=== PATIENT | female | born 1950 | race Caucasian/White ===

== ENCOUNTER 2016-12-23 10:47 | Inpatient (IN) | payer OTHER ==
[~2016-12-23] VITALS: Ht 152.4 cm; Wt 44.8 kg
[~2016-12-23 10:47] MED LIST: ACTOPLUS MET1 TABLET PO; AMLODIPINE BESY10 MG PO; AMLODIPINE BESYL5 MG PO; APRESOLINE50 MG PO; ASPIR 8181 M1 PO; ASPIRIN81 M2 PO; ATORVASTATIN CA20 MG PO; ATORVASTATIN CA40 MG PO; BACTRIM,SEPT1 TABLET PO; CEFTRIAXON2 GM/50 M1 IV; CHILDREN'S ASPI81 M1 PO; DOCUSATE SODIU100 MG PO; DULCOLAX10 MG PR; GENTLE LAXATIVE10 MG PR; GLIPIZIDE5 MG PO; HYDRALAZINE HCL25 MG PO; HYDROCHLOROTH12.5 M3 PO; LANTUS 10100 UNITS/ SC; LEVO-T137 MCG PO; LEVO-T150 MCG PO; LISINOPRIL40 MG PO; MELOXICAM7.5 MG PO; METFORMIN HCL1000 MG PO; MICARDIS HCT1 TABLE2 PO; MILK OF MAGNESI10 ML PO; MIRALAX17 GM PO; NEURONTIN300 MG PO; NOVOLIN,HU100 UNITS/ SC; OMEPRAZOLE20 MG PO; OXAYDO5 MG PO; OXYCODONE HCL10 MG PO; PERCOCET 5/31 TABLET PO; PHENERGAN25 MG PR; RANITIDINE HCL150 MG PO; SENNA PLUS TAB1 EACH PO; TYLENOL REGULA325 MG PO; VANCOMYCIN1 GM/200 M IV; VENOFER100 MG/5 M IV; ZESTRIL30 MG PO; ZESTRIL40 MG PO
[2016-12-23 12:00] LABS: BASOPHIL COUNT 0.1 K/uL (0-0.1); EOSINOPHIL (%) 2.5 % (0-5); EOSINOPHIL COUNT 0.2 K/uL (0-0.3); HEMATOCRIT 31.5 % (36.0-46.0); IMMATURE GRANULOCYTE (%) 0.4 % (0.0-0.7); INSTRUMENT ABS NEUTROPHIL CT 6.4 K/uL; MCH 31.5 PG (29.0-34.0); MCHC 31.4 G/DL (30.0-36.0); MCV 100.3 FL (83-99); MONOCYTE (%) 5.1 % (3-12); MONOCYTE COUNT 0.5 K/uL (0-0.8); NEUTROPHIL (%) 69.7 % (45-76); NEUTROPHIL COUNT 6.4 K/uL (1.8-6.4); RBC DIS.WIDTH-CV 13.3 % (11.8-14.6); RBC DIS.WIDTH-SD 48.6 % (39-53); RED BLOOD COUNT 3.14 M/uL (3.80-5.20); WHITE BLOOD COUNT 9.2 K/uL (4.1-10.2)
[2016-12-23 12:11] LABS: CHLORIDE 110 mEq/L (99-109); POTASSIUM 4.2 mEq/L (3.7-5.4); SODIUM 142 mEq/L (136-147)
[2016-12-23 12:13] LABS: GLUCOSE 157 mg/dL (70-99)
[2016-12-23 12:15] LABS: ANION GAP 10 MEQ/L (2-14); TOTAL BILIRUBIN 0.2 mg/dL (0.0-1.0)
[2016-12-23 12:17] LABS: ALKALINE PHOSPHATASE 79 IU/L (3-129); GFR ESTIMATE (CALCULATED) > 59 mL/min/
[2016-12-23 12:18] LABS: UREA NITROGEN (BUN) 17 mg/dL (9-23)
[2016-12-23 12:21] LABS: TROP-I INTERPRETATION INDETERMINATE; TROPONIN-I 0.53 ng/mL (0.0-0.30)
[2016-12-23 12:59] LABS: MEAN PLAT.VOLUME 12.6 uM^3 (9.5-12.4); PLAT.SUFFICIENCY ADEQUATE; PLATELET COUNT 170 K/uL (156-360)
[2016-12-23 13:53] LABS: INTER. NORMALIZED RATIO 1.1; PROTHROMBIN TIME 11.6 (9.2-11.2); PTT 27.4 (25-32)
[2016-12-23] MEDS ORDERED: ATORVASTATIN CA40 MG PO (16:00)
[2016-12-23] MEDS ORDERED: HYDRALAZINE HCL25 MG PO (16:02)
[2016-12-23] MEDS ORDERED: ZANTAC300 MG PO (16:05)
[2016-12-23] MEDS ORDERED: CLONIDINE HCL0.1 MG PO (16:07)
[2016-12-23] MEDS ORDERED: PRINIVIL20 MG PO (16:07)
[2016-12-23 16:08] LABS: TROP-I INTERPRETATION POSITIVE; TROPONIN-I 0.61 ng/mL (0.0-0.30)
[2016-12-23] MEDS ORDERED: CYCLOBENZAPRINE10 MG PO (16:08)
[2016-12-23] MEDS ORDERED: GABAPENTIN100 MG PO (16:10)
[2016-12-23] MEDS ORDERED: METFORMIN HCL500 MG PO (18:23)
[2016-12-23] MEDS ORDERED: NOVOLIN N100 UNITS/ SC (18:30)
[2016-12-23] MEDS ORDERED: MOBIC7.5 MG PO (18:30)
[2016-12-23 19:03] LABS: INTER. NORMALIZED RATIO 1.1; PROTHROMBIN TIME 11.4 (9.2-11.2)
[2016-12-23 19:07] LABS: PTT 46.4 (25-32)
[2016-12-23 19:26] VITALS: BP 146/79
[2016-12-23 21:30] LABS: POINT-OF-CARE METER ID UU14174216
[2016-12-23 23:27] LABS: POINT-OF-CARE METER ID UU14174216
[2016-12-23 23:58] VITALS: BP 144/67
[2016-12-24 01:07] LABS: TROP-I INTERPRETATION INDETERMINATE; TROPONIN-I 0.52 ng/mL (0.0-0.30)
[2016-12-24 02:53] LABS: POINT-OF-CARE METER ID UU13113698
[2016-12-24 03:40] VITALS: BP 138/55
[2016-12-24 06:50] LABS: TROP-I INTERPRETATION INDETERMINATE; TROPONIN-I 0.37 ng/mL (0.0-0.30)
[2016-12-24 07:09] LABS: ANION GAP 10 MEQ/L (2-14); CHLORIDE 107 MEQ/L (99-109); GFR ESTIMATE (CALCULATED) > 59 mL/min/; GLUCOSE 194 mg/dL (70-99); SAMPLE HEMOLYSIS CHECK 0; SAMPLE ICTERIC CHECK 0; SAMPLE LIPEMIA CHECK 0; SODIUM 142 MEQ/L (136-147); UREA NITROGEN (BUN) 18 mg/dL (9-23)
[2016-12-24 07:34] LABS: POINT-OF-CARE METER ID UU13113698; POINT-OF-CARE USER ID ENVKC36
[2016-12-24 09:23] LABS: BASOPHIL COUNT 0.1 K/uL (0-0.1); EOSINOPHIL (%) 3.3 % (0-5); EOSINOPHIL COUNT 0.4 K/uL (0-0.3); HEMATOCRIT 29.4 % (36.0-46.0); IMMATURE GRANULOCYTE (%) 0.4 % (0.0-0.7); LYMPHOCYTE COUNT 2.7 K/uL (1.0-2.8); MCH 31.9 PG (29.0-34.0); MCV 99.7 FL (83-99); MEAN PLAT.VOLUME 13.2 uM^3 (9.5-12.4); MONOCYTE (%) 4.9 % (3-12); MONOCYTE COUNT 0.5 K/uL (0-0.8); NEUTROPHIL (%) 65.4 % (45-76); RBC DIS.WIDTH-CV 13.4 % (11.8-14.6); RBC DIS.WIDTH-SD 47.7 % (39-53); RED BLOOD COUNT 2.95 M/uL (3.80-5.20); WHITE BLOOD COUNT 10.8 K/uL (4.1-10.2)
[2016-12-24 09:24] LABS: PLATELET COUNT 267 K/uL (156-360)
[2016-12-24 09:47] VITALS: BP 149/66
[2016-12-24 11:49] LABS: POINT-OF-CARE METER ID UU13113698; POINT-OF-CARE USER ID NUTSLF44
[2016-12-24 12:00] VITALS: BP 168/74
[2016-12-24 16:25] VITALS: BP 163/70
[2016-12-24 16:43] LABS: POINT-OF-CARE METER ID UU14174216; POINT-OF-CARE USER ID ENVKC36
[2016-12-24 18:00] LABS: POINT-OF-CARE METER ID UU14174216; POINT-OF-CARE USER ID ENVKC36
[2016-12-24 20:00] VITALS: BP 157/72
[2016-12-24 21:42] LABS: POINT-OF-CARE METER ID UU13113698
[2016-12-25 00:20] VITALS: BP 147/82
[2016-12-25 04:00] VITALS: BP 167/75
[2016-12-25 07:24] LABS: ANION GAP 13 MEQ/L (2-14); CHLORIDE 104 MEQ/L (99-109); GFR ESTIMATE (CALCULATED) > 59 mL/min/; GLUCOSE 245 mg/dL (70-99); POTASSIUM 3.8 MEQ/L (3.7-5.4); SAMPLE HEMOLYSIS CHECK 0; SAMPLE ICTERIC CHECK 0; SAMPLE LIPEMIA CHECK 0; SODIUM 140 MEQ/L (136-147); UREA NITROGEN (BUN) 17 mg/dL (9-23)
[2016-12-25 09:13] VITALS: BP 151/68
[2016-12-25] MEDS ORDERED: XARELTO15 MG PO (10:58)
[2016-12-25] MEDS ORDERED: LOPRESSOR50 MG PO (10:58)
[2016-12-25] MEDS ORDERED: LISINOPRIL10 MG PO (10:58)
[2016-12-25] MEDS ORDERED: FUROSEMIDE20 MG PO (11:00)
[2016-12-25 12:00] VITALS: BP 161/71
== END 2016-12-25 15:25 | disposition home or self-care (01) | DRG 281 ==
LOC: EME 10:47 → EDOF 16:57 → 4EAST 16:57
PROVIDERS: Emergency Medicine; Internal Medicine; Internal Medicine Cardiovascular Disease
DX: I21.4 Non-ST elevation (NSTEMI) myocardial infarction (principal); I48.0 Paroxysmal atrial fibrillation; I50.20 Unspecified systolic (congestive) heart failure; R79.89 Other specified abnormal findings of blood chemistry; D63.8 Anemia in other chronic diseases classified elsewhere; R53.1 Weakness; I10 Essential (primary) hypertension; E78.5 Hyperlipidemia, unspecified; I25.5 Ischemic cardiomyopathy; E11.65 Type 2 diabetes mellitus with hyperglycemia; E11.51 Type 2 diabetes mellitus with diabetic peripheral angiopathy without gangrene; R94.31 Abnormal electrocardiogram [ECG] [EKG]; Z89.611 Acquired absence of right leg above knee; Z86.12 Personal history of poliomyelitis
CPT/HCPCS: 71010; 80048; 80053; 82948; 83880; 84484; 85025; 85027; 85610; 85730; 93005; 93306; 99281; 99285; J1815

== ENCOUNTER 2017-01-05 23:11 | Inpatient (IN) | payer OTHER ==
[~2017-01-05] VITALS: Ht 152.4 cm; Wt 44.5 kg
[~2017-01-05 23:11] MED LIST changes: +CLONIDINE HCL0.1 MG PO; +CYCLOBENZAPRINE10 MG PO; +FUROSEMIDE20 MG PO; +GABAPENTIN100 MG PO; +LISINOPRIL10 MG PO; +LOPRESSOR50 MG PO; +METFORMIN HCL500 MG PO; +MOBIC7.5 MG PO; +NOVOLIN N100 UNITS/ SC; +PRINIVIL20 MG PO; +XARELTO15 MG PO; +ZANTAC300 MG PO
[2017-01-05 23:53] LABS: MCH 31.8 PG (29.0-34.0); MCHC 30.3 G/DL (30.0-36.0); RBC DIS.WIDTH-CV 13.8 % (11.8-14.6); RED BLOOD COUNT 2.96 M/uL (3.80-5.20)
[2017-01-06 00:04] LABS: CHLORIDE 106 mEq/L (99-109); INTER. NORMALIZED RATIO 1.3; POTASSIUM 5.7 mEq/L (3.7-5.4); PROTHROMBIN TIME 13.7 (9.2-11.2); PTT 32.3 (25-32); SODIUM 140 mEq/L (136-147)
[2017-01-06 00:07] LABS: ANION GAP 13 MEQ/L (2-14)
[2017-01-06 00:10] LABS: GFR ESTIMATE (CALCULATED) 43 mL/min/
[2017-01-06 00:11] LABS: UREA NITROGEN (BUN) 24 mg/dL (9-23)
[2017-01-06 00:13] LABS: GLUCOSE 525 mg/dL (70-99); TROP-I INTERPRETATION NEGATIVE; TROPONIN-I 0.12 ng/mL (0.0-0.30)
[2017-01-06 00:28] LABS: BASE EXCESS -2.9 mEq/L (-3 to +3); BICARBONATE 22.7 mEq/L (22-26); CARBOXY HGB 1.2 % (0-5); COMMENTS - BLOOD GASES C+A+; DEVICE 840 VENT; FI02 60 %; METHEMOGLOBIN 1.2 % (0-1.5); MODE SPONT NIPPV; PCO2 42 mm Hg (35-45); PEEP 5 CM/H20; PO2 186 mm Hg (80-100); PRES. SUPPORT 10 CM/H2O; SITE LR; TOTAL RESP RATE 26 resp/min; pH 7.34 (7.35-7.45)
[2017-01-06 01:02] LABS: WHITE BLOOD COUNT 14.6 K/uL (4.1-10.2)
[2017-01-06 01:03] LABS: MCV 104.7 FL (83-99)
[2017-01-06 01:11] LABS: INFLUENZA A VIRAL ANTIGEN NEGATIVE; INFLUENZA B VIRAL ANTIGEN NEGATIVE
[2017-01-06 01:16] LABS: HEMATOLOGY COMMENT 1 SN; PLAT.SUFFICIENCY ADEQUATE; PLATELET CLUMPS PRESENT - PLATELET COUNT APPEARS ADQ.; PLATELET COUNT UNABLE TO REPORT K/uL (156-360)
[2017-01-06] MEDS ORDERED: FUROSEMIDE20 MG PO (01:28)
[2017-01-06 05:47] LABS: CHLORIDE 107 mEq/L (99-109); SODIUM 142 mEq/L (136-147)
[2017-01-06 05:48] LABS: GLUCOSE 266 mg/dL (70-99)
[2017-01-06 05:50] LABS: ANION GAP 10 MEQ/L (2-14)
[2017-01-06 05:52] LABS: GFR ESTIMATE (CALCULATED) 52 mL/min/
[2017-01-06 05:53] LABS: UREA NITROGEN (BUN) 24 mg/dL (9-23)
[2017-01-06 05:59] LABS: TROP-I INTERPRETATION NEGATIVE
[2017-01-06 07:09] LABS: Estimated Average Glucose 229 mg/dL (70-123); HEMOGLOBIN A1c (GLYCOHEMOGLOB) 9.6 % HGB (Below 5.7)
[2017-01-06 07:31] LABS: POINT-OF-CARE METER ID UU13113702
[2017-01-06 09:43] LABS: POINT-OF-CARE METER ID UU13113702
[2017-01-06 13:20] VITALS: BP 141/64
[2017-01-06 13:38] LABS: CREATINE KINASE 27 IU/L (1-294); TOTAL CK 27 IU/L (1-294)
[2017-01-06 13:43] LABS: TROP-I INTERPRETATION NEGATIVE
[2017-01-06 13:44] VITALS: BP 141/64
[2017-01-06 13:59] LABS: CK-MB 1.3 ng/mL (0.0-4.9)
[2017-01-06 19:45] VITALS: BP 144/65
[2017-01-06 23:05] VITALS: BP 146/76
[2017-01-07 04:22] VITALS: BP 125/82
[2017-01-07 07:00] VITALS: BP 151/76
[2017-01-07 08:15] LABS: POINT-OF-CARE USER ID NUTSLF44
[2017-01-07 11:25] VITALS: BP 158/85
[2017-01-07 11:57] LABS: POINT-OF-CARE USER ID NUTSLF44
[2017-01-07 16:11] VITALS: BP 129/62
[2017-01-07 17:21] LABS: POINT-OF-CARE USER ID NUTSLF44
[2017-01-07 19:15] VITALS: BP 153/72
[2017-01-07 23:15] VITALS: BP 156/74
[2017-01-08 03:00] VITALS: BP 154/72
[2017-01-08 05:59] LABS: BASOPHIL COUNT 0.1 K/uL (0-0.1); EOSINOPHIL COUNT 0.3 K/uL (0-0.3); HEMATOCRIT 29.5 % (36.0-46.0); IMMATURE GRANULOCYTE (%) 0.4 % (0.0-0.7); LYMPHOCYTE COUNT 2.3 K/uL (1.0-2.8); MCH 31.6 PG (29.0-34.0); MCHC 31.2 G/DL (30.0-36.0); MCV 101.4 FL (83-99); MONOCYTE (%) 5.5 % (3-12); MONOCYTE COUNT 0.5 K/uL (0-0.8); NEUTROPHIL (%) 61.1 % (45-76); RBC DIS.WIDTH-CV 13.9 % (11.8-14.6); RBC DIS.WIDTH-SD 51.4 % (39-53); RED BLOOD COUNT 2.91 M/uL (3.80-5.20)
[2017-01-08 06:06] LABS: PLATELET COUNT 151 K/uL (156-360); WHITE BLOOD COUNT 8.2 K/uL (4.1-10.2)
[2017-01-08 06:32] LABS: ANION GAP 10 MEQ/L (2-14); CHLORIDE 104 MEQ/L (99-109); GFR ESTIMATE (CALCULATED) 52 mL/min/; POTASSIUM 4.9 MEQ/L (3.7-5.4); SAMPLE HEMOLYSIS CHECK 0; SAMPLE ICTERIC CHECK 0; SAMPLE LIPEMIA CHECK 0; SODIUM 142 MEQ/L (136-147); UREA NITROGEN (BUN) 24 mg/dL (9-23)
[2017-01-08 06:37] LABS: GLUCOSE 119 mg/dL (70-99)
[2017-01-08 07:06] VITALS: BP 153/70
[2017-01-08 11:20] VITALS: BP 154/71
[2017-01-08 16:20] VITALS: BP 138/68
[2017-01-08 19:48] VITALS: BP 158/72
[2017-01-08 23:57] VITALS: BP 149/67
[2017-01-09 03:47] VITALS: BP 144/67
[2017-01-09 07:14] LABS: ANION GAP 10 MEQ/L (2-14); CHLORIDE 104 MEQ/L (99-109); GFR ESTIMATE (CALCULATED) 59 mL/min/; GLUCOSE 144 mg/dL (70-99); POTASSIUM 4.4 MEQ/L (3.7-5.4); SAMPLE HEMOLYSIS CHECK 0; SAMPLE ICTERIC CHECK 0; SAMPLE LIPEMIA CHECK 0; SODIUM 140 MEQ/L (136-147); UREA NITROGEN (BUN) 25 mg/dL (9-23)
[2017-01-09 07:43] VITALS: BP 155/67
[2017-01-09 11:44] LABS: POINT-OF-CARE METER ID UU14174216
[2017-01-09 14:39] VITALS: BP 159/72
== END 2017-01-09 14:37 | disposition home health service (06) | DRG 281 ==
LOC: EME → EDBD 23:11 → EDOF 01-06 08:30 → 4EAST 01-06 08:30
PROVIDERS: Emergency Medicine; Internal Medicine
PROC: 5A09358 Assistance with Respiratory Ventilation, Less than 24 Consecutive Hours, Intermittent Positive Airway Pressure (ICD-10-PCS; principal; 2017-01-05)
DX: I11.0 Hypertensive heart disease with heart failure (principal); I50.23 Acute on chronic systolic (congestive) heart failure; E87.2 Acidosis; I21.4 Non-ST elevation (NSTEMI) myocardial infarction; I25.5 Ischemic cardiomyopathy; E11.65 Type 2 diabetes mellitus with hyperglycemia; I48.0 Paroxysmal atrial fibrillation; E03.9 Hypothyroidism, unspecified; E78.5 Hyperlipidemia, unspecified; D64.9 Anemia, unspecified; G14 Postpolio syndrome; R53.1 Weakness; K21.9 Gastro-esophageal reflux disease without esophagitis; Z79.4 Long term (current) use of insulin; Z79.82 Long term (current) use of aspirin; Z91.040 Latex allergy status; Z88.0 Allergy status to penicillin
CPT/HCPCS: 36600; 71010; 71020; 80048; 80048 91; 82550 91; 82553; 82803; 82948; 83036; 83605; 83880; 84100; 84484; 85025; 85027; 85610; 85730; 87040; 87502; 93005; 94002; 94760; 94799; 99202; 99281; 99285; J0456; J0692; J1815; J1940; J7050; J7644

== ENCOUNTER 2017-03-25 16:35 | Inpatient (IN) | payer OTHER ==
[~2017-03-25] VITALS: Ht 152.4 cm; Wt 41.9 kg
[2017-03-25 18:01] LABS: ADD MIUA? YES; BILIRUBIN NEGATIVE; BLOOD NEGATIVE; COLOR YELLOW ((YELLOW)); GLUCOSE (STRIP) 150; KETONES NEGATIVE; LEUKOCYTES LARGE; NITRITE NEGATIVE; PROTEIN (STRIP) 30; SPECIFIC GRAVITY 1.009 (1.000-1.030); UROBILINOGEN 0.2 MG/DL (0.2-1.0)
[2017-03-25 18:23] LABS: HEMATOCRIT 33.1 % (36.0-46.0); MCH 31.6 PG (29.0-34.0); MCV 98.8 FL (83-99); MEAN PLAT.VOLUME 12.8 uM^3 (9.5-12.4); PLATELET COUNT 259 K/uL (156-360); RBC DIS.WIDTH-CV 15.3 % (11.8-14.6); RBC DIS.WIDTH-SD 55.5 % (39-53); RED BLOOD COUNT 3.35 M/uL (3.80-5.20); WHITE BLOOD COUNT 9.7 K/uL (4.1-10.2)
[2017-03-25 18:39] LABS: CHLORIDE 102 mEq/L (99-109); POTASSIUM 4.7 mEq/L (3.7-5.4); SODIUM 139 mEq/L (136-147)
[2017-03-25 18:42] LABS: ANION GAP 18 MEQ/L (2-14)
[2017-03-25 18:44] LABS: GFR ESTIMATE (CALCULATED) 25 mL/min/
[2017-03-25 18:45] LABS: UREA NITROGEN (BUN) 38 mg/dL (9-23)
[2017-03-25 18:48] LABS: GLUCOSE 312 mg/dL (70-99)
[2017-03-25 19:04] LABS: RED BLOOD CELLS 0-5 /HPF (0-5)
[2017-03-25 19:05] LABS: EPITHELIAL CELLS NONE SEEN /HPF; WHITE BLOOD CELLS 20-30 /HPF (0-5)
[2017-03-25 19:06] LABS: BACTERIA NONE SEEN /HPF; MUCUS TRACE /LPF; UCUL ADDED? NO
[2017-03-25] MEDS ORDERED: ATORVASTATIN CA20 MG PO (20:21)
[2017-03-25] MEDS ORDERED: LISINOPRIL20 MG PO (20:22)
[2017-03-25] MEDS ORDERED: APRESOLINE25 MG PO (20:25)
[2017-03-25] MEDS ORDERED: FLUCONAZOLE100 MG PO (20:25)
[2017-03-25] MEDS ORDERED: CLONIDINE HCL0.1 MG PO (20:25)
[2017-03-25 21:07] VITALS: BP 164/69
[2017-03-25 23:49] VITALS: BP 148/69
[2017-03-26 00:06] LABS: POINT-OF-CARE METER ID UU14162508
[2017-03-26 03:31] VITALS: BP 134/63
[2017-03-26 06:47] LABS: POINT-OF-CARE METER ID UU14162508
[2017-03-26 07:18] LABS: ANION GAP 10 MEQ/L (2-14); CHLORIDE 108 MEQ/L (99-109); GFR ESTIMATE (CALCULATED) 32 mL/min/; GLUCOSE 171 mg/dL (70-99); POTASSIUM 4.7 MEQ/L (3.7-5.4); SAMPLE HEMOLYSIS CHECK 0; SAMPLE ICTERIC CHECK 0; SAMPLE LIPEMIA CHECK 0; SODIUM 142 MEQ/L (136-147); UREA NITROGEN (BUN) 33 mg/dL (9-23)
[2017-03-26 07:50] VITALS: BP 141/61
[2017-03-26 11:45] VITALS: BP 154/55
[2017-03-26 11:53] LABS: POINT-OF-CARE METER ID UU14162508
[2017-03-26 16:11] VITALS: BP 161/65
[2017-03-26 21:43] LABS: POINT-OF-CARE METER ID UU14162508
[2017-03-26 23:39] VITALS: BP 133/50
[2017-03-27 06:42] LABS: POINT-OF-CARE METER ID UU14162508
[2017-03-27 07:25] LABS: ANION GAP 9 MEQ/L (2-14); CHLORIDE 113 MEQ/L (99-109); GFR ESTIMATE (CALCULATED) 43 mL/min/; POTASSIUM 4.6 MEQ/L (3.7-5.4); SAMPLE HEMOLYSIS CHECK 0; SAMPLE ICTERIC CHECK 0; SAMPLE LIPEMIA CHECK 0; SODIUM 145 MEQ/L (136-147); UREA NITROGEN (BUN) 25 mg/dL (9-23)
[2017-03-27 07:32] LABS: GLUCOSE 82 mg/dL (70-99)
[2017-03-27 08:00] VITALS: BP 152/67
[2017-03-27 16:10] LABS: POINT-OF-CARE METER ID UU14162508
[2017-03-27 16:11] VITALS: BP 178/59
[2017-03-27 19:28] VITALS: BP 160/66
[2017-03-27 21:42] LABS: POINT-OF-CARE METER ID UU14162508
[2017-03-27 23:46] VITALS: BP 121/64
[2017-03-28 03:42] VITALS: BP 138/60
[2017-03-28 07:34] LABS: POINT-OF-CARE METER ID UU14162508
[2017-03-28 07:35] VITALS: BP 180/77
[2017-03-28 08:16] LABS: ANION GAP 10 MEQ/L (2-14); CHLORIDE 111 MEQ/L (99-109); GFR ESTIMATE (CALCULATED) 40 mL/min/; GLUCOSE 172 mg/dL (70-99); POTASSIUM 4.5 MEQ/L (3.7-5.4); SAMPLE HEMOLYSIS CHECK 0; SAMPLE ICTERIC CHECK 0; SAMPLE LIPEMIA CHECK 0; SODIUM 140 MEQ/L (136-147); UREA NITROGEN (BUN) 30 mg/dL (9-23)
[2017-03-28 11:34] LABS: POINT-OF-CARE METER ID UU14162508
[2017-03-28 12:56] LABS: GLUCOSE 286 mg/dL (70-99)
[2017-03-28 15:15] VITALS: BP 157/67
[2017-03-28 16:26] LABS: POINT-OF-CARE METER ID UU14162508
[2017-03-28 21:47] LABS: POINT-OF-CARE METER ID UU14162508
[2017-03-29 00:53] VITALS: BP 124/56
[2017-03-29 06:49] LABS: POINT-OF-CARE METER ID UU14162508
[2017-03-29 07:35] VITALS: BP 163/64
[2017-03-29 15:50] VITALS: BP 162/71
[2017-03-30 00:31] VITALS: BP 194/79
[2017-03-30 06:22] LABS: POINT-OF-CARE METER ID UU14162508
[2017-03-30 07:00] LABS: ANION GAP 6 MEQ/L (2-14); CHLORIDE 110 MEQ/L (99-109); POTASSIUM 5.1 MEQ/L (3.7-5.4); SAMPLE HEMOLYSIS CHECK 0; SAMPLE ICTERIC CHECK 0; SAMPLE LIPEMIA CHECK 0; SODIUM 137 MEQ/L (136-147)
[2017-03-30 07:05] VITALS: BP 224/90
[2017-03-30 07:06] LABS: GFR ESTIMATE (CALCULATED) 52 mL/min/; UREA NITROGEN (BUN) 28 mg/dL (9-23)
[2017-03-30 07:08] LABS: GLUCOSE 124 mg/dL (70-99)
[2017-03-30 09:31] VITALS: BP 133/58
[2017-03-30 09:35] VITALS: BP 133/84
[2017-03-30 12:04] LABS: POINT-OF-CARE METER ID UU14162508
[2017-03-30 15:58] LABS: POINT-OF-CARE METER ID UU14162508
[2017-03-30 16:18] VITALS: BP 142/63
[2017-03-30 21:58] LABS: POINT-OF-CARE METER ID UU14162508
[2017-03-31 00:16] VITALS: BP 167/71
[2017-03-31 06:42] LABS: POINT-OF-CARE METER ID UU14162508
[2017-03-31 07:35] VITALS: BP 206/82
[2017-03-31 08:59] VITALS: BP 153/64
[2017-03-31 10:56] LABS: POINT-OF-CARE METER ID UU14162508
[2017-03-31 12:24] LABS: POINT-OF-CARE METER ID UU14162508
== END 2017-03-31 15:49 | DRG 683 ==
LOC: EME 16:35 → EDOF 19:55 → 2EAST 19:55
PROVIDERS: Emergency Medicine; Family Medicine; Internal Medicine
DX: N17.9 Acute kidney failure, unspecified (principal); I50.9 Heart failure, unspecified; I48.91 Unspecified atrial fibrillation; E87.2 Acidosis; E11.22 Type 2 diabetes mellitus with diabetic chronic kidney disease; E11.65 Type 2 diabetes mellitus with hyperglycemia; I42.9 Cardiomyopathy, unspecified; K21.9 Gastro-esophageal reflux disease without esophagitis; I50.32 Chronic diastolic (congestive) heart failure; I13.0 Hypertensive heart and chronic kidney disease with heart failure and stage 1 through stage 4 chronic kidney disease, or unspecified chronic kidney disease; N39.0 Urinary tract infection, site not specified; N18.2 Chronic kidney disease, stage 2 (mild); R80.9 Proteinuria, unspecified; E03.9 Hypothyroidism, unspecified; E86.0 Dehydration; I25.10 Atherosclerotic heart disease of native coronary artery without angina pectoris; E11.9 Type 2 diabetes mellitus without complications; E78.5 Hyperlipidemia, unspecified; Z89.611 Acquired absence of right leg above knee; Z79.01 Long term (current) use of anticoagulants; Z88.0 Allergy status to penicillin; Z91.012 Allergy to eggs; Z91.040 Latex allergy status; I25.2 Old myocardial infarction; Z82.49 Family history of ischemic heart disease and other diseases of the circulatory system; Z91.19 Patient's noncompliance with other medical treatment and regimen; Z68.1 Body mass index [BMI] 19.9 or less, adult
CPT/HCPCS: 36415; 76770; 80048; 80053; 81003; 82570; 82948; 83735; 83970; 84100; 84156; 84550; 84999; 85025; 85027; 87040; 87086; 97530 GP; 99281; 99285; J0692; J1815; J2405; J7030; J7050

== ENCOUNTER 2017-05-06 08:22 | Inpatient (IN) | payer OTHER ==
[~2017-05-06] VITALS: Ht 152.4 cm; Wt 43.4 kg
[~2017-05-06 08:22] MED LIST changes: +APRESOLINE25 MG PO; +FLUCONAZOLE100 MG PO; +LISINOPRIL20 MG PO
[2017-05-06 09:22] LABS: BASOPHIL COUNT 0.1 K/uL (0-0.1); EOSINOPHIL (%) 3.2 % (0-5); EOSINOPHIL COUNT 0.3 K/uL (0-0.3); HEMATOCRIT 33.4 % (36.0-46.0); IMMATURE GRANULOCYTE (%) 0.3 % (0.0-0.7); INSTRUMENT ABS NEUTROPHIL CT 5.7 K/uL; LYMPHOCYTE COUNT 2.5 K/uL (1.0-2.8); MCH 32.7 PG (29.0-34.0); MCHC 31.7 G/DL (30.0-36.0); MCV 103.1 FL (83-99); MEAN PLAT.VOLUME 13.8 uM^3 (9.5-12.4); MONOCYTE COUNT 0.6 K/uL (0-0.8); NEUTROPHIL (%) 62.5 % (45-76); NEUTROPHIL COUNT 5.7 K/uL (1.8-6.4); PLATELET COUNT 147 K/uL (156-360); RBC DIS.WIDTH-CV 14.2 % (11.8-14.6); RBC DIS.WIDTH-SD 53.6 % (39-53); RED BLOOD COUNT 3.24 M/uL (3.80-5.20); WHITE BLOOD COUNT 9.2 K/uL (4.1-10.2)
[2017-05-06 09:28] LABS: INTER. NORMALIZED RATIO 1.3
[2017-05-06 09:30] LABS: PTT 35.7 SEC (25-37)
[2017-05-06 09:41] LABS: CHLORIDE 110 mEq/L (99-109); POTASSIUM 4.8 mEq/L (3.7-5.4); SODIUM 145 mEq/L (136-147)
[2017-05-06 09:43] LABS: GLUCOSE 177 mg/dL (70-99)
[2017-05-06 09:44] LABS: ANION GAP 11 MEQ/L (2-14)
[2017-05-06 09:46] LABS: GFR ESTIMATE (CALCULATED) 59 mL/min/
[2017-05-06 09:47] LABS: UREA NITROGEN (BUN) 25 mg/dL (9-23)
[2017-05-06 09:50] LABS: TROP-I INTERPRETATION NEGATIVE; TROPONIN-I 0.03 ng/mL (0.0-0.30)
[2017-05-06 10:52] LABS: POINT-OF-CARE METER ID UU13113702
[2017-05-06] MEDS ORDERED: LOPRESSOR100 M1 PO (11:07)
[2017-05-06] MEDS ORDERED: METFORMIN HCL1000 MG PO (11:08)
[2017-05-06] MEDS ORDERED: ACETAMINOPHEN325 M1 PO ×2 (11:09→11:10)
[2017-05-06] MEDS ORDERED: METFORMIN HCL500 MG PO (11:32)
[2017-05-06 14:48] LABS: TROP-I INTERPRETATION NEGATIVE; TROPONIN-I 0.02 ng/mL (0.0-0.30)
[2017-05-06 23:00] VITALS: BP 175/73
[2017-05-06 23:25] LABS: TROP-I INTERPRETATION NEGATIVE; TROPONIN-I 0.02 ng/mL (0.0-0.30)
[2017-05-07] VITALS (9 sets, daily range): BP systolic 148–195; BP diastolic 54–82
[2017-05-07 06:08] LABS: HEMATOCRIT 27.3 % (36.0-46.0); MCH 34.3 PG (29.0-34.0); MCHC 33.3 G/DL (30.0-36.0); MEAN PLAT.VOLUME 14.7 uM^3 (9.5-12.4); PLATELET COUNT 127 K/uL (156-360); RBC DIS.WIDTH-CV 14.1 % (11.8-14.6); RBC DIS.WIDTH-SD 53.1 % (39-53); RED BLOOD COUNT 2.65 M/uL (3.80-5.20); WHITE BLOOD COUNT 7.7 K/uL (4.1-10.2)
[2017-05-07 06:35] LABS: ANION GAP 10 MEQ/L (2-14); CHLORIDE 106 MEQ/L (99-109); GFR ESTIMATE (CALCULATED) 59 mL/min/; GLUCOSE 245 mg/dL (70-99); POTASSIUM 4.5 MEQ/L (3.7-5.4); SAMPLE HEMOLYSIS CHECK 0; SAMPLE ICTERIC CHECK 0; SAMPLE LIPEMIA CHECK 0; SODIUM 142 MEQ/L (136-147); UREA NITROGEN (BUN) 25 mg/dL (9-23)
[2017-05-07 07:21] LABS: Estimated Average Glucose 180 mg/dL (70-123); HEMOGLOBIN A1c (GLYCOHEMOGLOB) 7.9 % HGB (Below 5.7)
[2017-05-07 22:28] LABS: TROP-I INTERPRETATION NEGATIVE; TROPONIN-I 0.03 ng/mL (0.0-0.30)
[2017-05-08 00:03] VITALS: BP 115/55
[2017-05-08 03:42] VITALS: BP 150/64
[2017-05-08 07:15] VITALS: BP 187/79
[2017-05-08 09:30] VITALS: BP 147/72
[2017-05-08 11:20] VITALS: BP 162/68
== END 2017-05-08 12:36 | DRG 292 ==
LOC: EME 08:22 → EDOF 20:53 → 5WEST 20:53 → ENRESERV 20:54 → 5WEST 22:26 → 2EAST 05-07 12:34 → 5WEST 05-07 12:34 → ENRESERV 05-07 12:46 → CANRESERV 05-07 12:46 → ENRESERV 05-07 12:47 → 2EAST 05-07 14:08
PROVIDERS: Emergency Medicine; Hospitalist; Internal Medicine
DX: I11.0 Hypertensive heart disease with heart failure (principal); Z68.1 Body mass index [BMI] 19.9 or less, adult; N64.4 Mastodynia; E86.0 Dehydration; I48.0 Paroxysmal atrial fibrillation; R00.1 Bradycardia, unspecified; I34.0 Nonrheumatic mitral (valve) insufficiency; I25.10 Atherosclerotic heart disease of native coronary artery without angina pectoris; E03.9 Hypothyroidism, unspecified; D63.8 Anemia in other chronic diseases classified elsewhere; I50.32 Chronic diastolic (congestive) heart failure; I36.1 Nonrheumatic tricuspid (valve) insufficiency; N18.2 Chronic kidney disease, stage 2 (mild); E11.22 Type 2 diabetes mellitus with diabetic chronic kidney disease; K21.9 Gastro-esophageal reflux disease without esophagitis; E78.5 Hyperlipidemia, unspecified; I27.2 Other secondary pulmonary hypertension; I42.9 Cardiomyopathy, unspecified; I25.2 Old myocardial infarction; Z89.611 Acquired absence of right leg above knee; Z88.0 Allergy status to penicillin; Z79.4 Long term (current) use of insulin; Z79.84 Long term (current) use of oral hypoglycemic drugs; Z79.01 Long term (current) use of anticoagulants; Z82.49 Family history of ischemic heart disease and other diseases of the circulatory system; Z83.3 Family history of diabetes mellitus
CPT/HCPCS: 71010; 80048; 82948; 83036; 84484; 85025; 85027; 85610; 85730; 93005; 99281; 99285; G0378; J1815; J2270

== ENCOUNTER 2017-06-10 20:27 | Inpatient (IN) | payer OTHER ==
[~2017-06-10] VITALS: Ht 152.4 cm; Wt 44.0 kg
[~2017-06-10 20:27] MED LIST changes: +ACETAMINOPHEN325 M1 PO; +LOPRESSOR100 M1 PO
[2017-06-10 21:06] LABS: BASOPHIL COUNT 0.1 K/uL (0-0.1); EOSINOPHIL (%) 3.4 % (0-5); EOSINOPHIL COUNT 0.3 K/uL (0-0.3); HEMATOCRIT 35.2 % (36.0-46.0); IMMATURE GRANULOCYTE (%) 0.4 % (0.0-0.7); LYMPHOCYTE COUNT 2.6 K/uL (1.0-2.8); MCH 32.8 PG (29.0-34.0); MCV 99.4 FL (83-99); MONOCYTE (%) 5.9 % (3-12); MONOCYTE COUNT 0.6 K/uL (0-0.8); NEUTROPHIL (%) 62.2 % (45-76); PLATELET COUNT 171 K/uL (156-360); RBC DIS.WIDTH-CV 12.3 % (11.8-14.6); RBC DIS.WIDTH-SD 45.1 % (39-53); RED BLOOD COUNT 3.54 M/uL (3.80-5.20); WHITE BLOOD COUNT 9.7 K/uL (4.1-10.2)
[2017-06-10 21:15] LABS: CHLORIDE 108 mEq/L (99-109); POTASSIUM 4.9 mEq/L (3.7-5.4); SODIUM 140 mEq/L (136-147)
[2017-06-10 21:16] LABS: GLUCOSE 199 mg/dL (70-99)
[2017-06-10 21:18] LABS: ANION GAP 14 MEQ/L (2-14)
[2017-06-10 21:20] LABS: GFR ESTIMATE (CALCULATED) 52 mL/min/
[2017-06-10 21:21] LABS: UREA NITROGEN (BUN) 36 mg/dL (9-23)
[2017-06-10 21:27] LABS: TROP-I INTERPRETATION POSITIVE
[2017-06-10 21:33] LABS: TROPONIN-I 1.16 ng/mL (0.0-0.30)
[2017-06-10] MEDS ORDERED: PRILOSEC20 MG PO (23:02)
[2017-06-10] MEDS ORDERED: JANUVIA25 M1 PO (23:03)
[2017-06-10] MEDS ORDERED: VIBRAMYCIN100 MG PO (23:05)
[2017-06-10] MEDS ORDERED: ACIDOPHILUS1 EAC3 PO (23:07)
[2017-06-10] MEDS ORDERED: XARELTO15 MG PO (23:11)
[2017-06-10] MEDS ORDERED: DULCOLAX10 MG PR (23:23)
[2017-06-10] MEDS ORDERED: FLEET ENEMA-AD118 ML PR (23:25)
[2017-06-10] MEDS ORDERED: MILK OF MAGN PO (23:27)
[2017-06-10] MEDS ORDERED: PROMETHAZINE HC25 M1 PO (23:29)
[2017-06-10 23:45] LABS: TROP-I INTERPRETATION POSITIVE
[2017-06-11] VITALS (7 sets, daily range): BP systolic 110–181; BP diastolic 50–74
[2017-06-11 01:32] LABS: METH RESISTANT S AUREUS PCR POSITIVE (NEGATIVE)
[2017-06-11 01:54] LABS: PROBE CHECK PASS
[2017-06-11 05:33] LABS: PTT 36.9 SEC (25-37)
[2017-06-11 05:37] LABS: POINT-OF-CARE METER ID UU14174216
[2017-06-11 05:45] LABS: TROP-I INTERPRETATION POSITIVE
[2017-06-11 05:49] LABS: TROPONIN-I 1.18 ng/mL (0.0-0.30)
[2017-06-11 07:38] LABS: INTER. NORMALIZED RATIO 1.6
[2017-06-11 16:59] LABS: POINT-OF-CARE METER ID UU14174216
[2017-06-11 17:15] LABS: POINT-OF-CARE METER ID UU14174216
[2017-06-11 20:59] LABS: POINT-OF-CARE METER ID UU14174216
[2017-06-12 00:19] VITALS: BP 120/45
[2017-06-12 04:10] VITALS: BP 130/40
[2017-06-12 09:44] VITALS: BP 182/79
== END 2017-06-12 10:44 | disposition short-term general hospital (02) | DRG 281 ==
LOC: EME → EDBD 20:27 → 4EAST 22:54 → EDOF 22:54 → ENRESERV 22:58 → 4EAST 06-11 00:03 → ENPENDDIS 06-12 10:00 → 4EAST 06-12 10:44
PROVIDERS: Emergency Medicine; Internal Medicine
PROC: B2111ZZ Fluoroscopy of Multiple Coronary Arteries using Low Osmolar Contrast (ICD-10-PCS; principal; 2017-06-11)
PROC: 4A023N7 Measurement of Cardiac Sampling and Pressure, Left Heart, Percutaneous Approach (ICD-10-PCS; principal; 2017-06-11)
DX: I21.4 Non-ST elevation (NSTEMI) myocardial infarction (principal); I11.0 Hypertensive heart disease with heart failure; I13.0 Hypertensive heart and chronic kidney disease with heart failure and stage 1 through stage 4 chronic kidney disease, or unspecified chronic kidney disease; N18.9 Chronic kidney disease, unspecified; I48.0 Paroxysmal atrial fibrillation; Z89.611 Acquired absence of right leg above knee; E78.5 Hyperlipidemia, unspecified; E03.9 Hypothyroidism, unspecified; I25.5 Ischemic cardiomyopathy; K21.9 Gastro-esophageal reflux disease without esophagitis; D63.8 Anemia in other chronic diseases classified elsewhere; I25.110 Atherosclerotic heart disease of native coronary artery with unstable angina pectoris; Z79.01 Long term (current) use of anticoagulants; Z89.511 Acquired absence of right leg below knee; Z68.1 Body mass index [BMI] 19.9 or less, adult; I50.9 Heart failure, unspecified
CPT/HCPCS: 71010; 80048; 82948; 84484; 85025; 85347; 85610; 85730; 87641; 93005; 94799; 99281; 99285; C1769; C1887; J0360; J1644; J2250; J2270; J3010; J7040; Q0169

== ENCOUNTER 2017-09-11 19:50 | Observation (INO) | payer OTHER ==
[~2017-09-11] VITALS: Ht 152.4 cm; Wt 43.2 kg
[~2017-09-11 19:50] MED LIST changes: +ACIDOPHILUS1 EAC3 PO; +FLEET ENEMA-AD118 ML PR; +JANUVIA25 M1 PO; -LOPRESSOR100 M1 PO; +METOPROLOL SUC100 MG PO; +MILK OF MAGN PO; +PRILOSEC20 MG PO; +PROMETHAZINE HC25 M1 PO; +VIBRAMYCIN100 MG PO
[2017-09-11 20:23] LABS: HEMATOCRIT 31.2 % (36.0-46.0); MCV 96.9 FL (83-99); MEAN PLAT.VOLUME 13.3 uM^3 (9.5-12.4); PLATELET COUNT 179 K/uL (156-360); RBC DIS.WIDTH-SD 46.6 % (39-53); RED BLOOD COUNT 3.22 M/uL (3.80-5.20); WHITE BLOOD COUNT 7.8 K/uL (4.1-10.2)
[2017-09-11 20:34] LABS: CHLORIDE 108 mEq/L (99-109); POTASSIUM 4.8 mEq/L (3.7-5.4); SODIUM 141 mEq/L (136-147)
[2017-09-11 20:36] LABS: GLUCOSE 162 mg/dL (70-99)
[2017-09-11 20:37] LABS: ANION GAP 11 MEQ/L (2-14)
[2017-09-11 20:39] LABS: GFR ESTIMATE (CALCULATED) > 59 mL/min/
[2017-09-11 20:40] LABS: UREA NITROGEN (BUN) 21 mg/dL (9-23)
[2017-09-11 20:46] LABS: TROP-I INTERPRETATION NEGATIVE; TROPONIN-I 0.03 ng/mL (0.0-0.30)
[2017-09-11] MEDS ORDERED: LACTINEX CHEWA1 EACH PO (23:42)
[2017-09-11] MEDS ORDERED: PLAVIX75 MG PO (23:42)
[2017-09-11] MEDS ORDERED: COZAAR25 MG PO (23:43)
[2017-09-11] MEDS ORDERED: SENNA PLUS TAB1 EACH PO (23:45)
[2017-09-12 00:02] LABS: TROP-I INTERPRETATION NEGATIVE; TROPONIN-I 0.03 ng/mL (0.0-0.30)
[2017-09-12 03:01] LABS: TOTAL BILIRUBIN 0.2 mg/dL (0.0-1.0)
[2017-09-12 03:02] LABS: ALKALINE PHOSPHATASE 85 IU/L (3-129)
[2017-09-12 03:05] LABS: DIRECT BILIRUBIN 0.1 mg/dL (0.0-0.3)
[2017-09-12 03:06] LABS: LIPASE 32 U/L (1.0-51.0)
[2017-09-12 04:00] VITALS: BP 164/56
[2017-09-12 05:26] LABS: MCH 31.3 PG (29.0-34.0); MCHC 32.1 G/DL (30.0-36.0); MCV 97.6 FL (83-99); MEAN PLAT.VOLUME 13.3 uM^3 (9.5-12.4); PLATELET COUNT 164 K/uL (156-360); RBC DIS.WIDTH-CV 13.2 % (11.8-14.6); RBC DIS.WIDTH-SD 47.3 % (39-53); RED BLOOD COUNT 2.97 M/uL (3.80-5.20); WHITE BLOOD COUNT 7.2 K/uL (4.1-10.2)
[2017-09-12 05:59] LABS: TROP-I INTERPRETATION NEGATIVE; TROPONIN-I 0.02 ng/mL (0.0-0.30)
[2017-09-12 06:06] LABS: ANION GAP 10 MEQ/L (2-14); CHLORIDE 107 MEQ/L (99-109); GFR ESTIMATE (CALCULATED) 47 mL/min/; GLUCOSE 241 mg/dL (70-99); POTASSIUM 4.9 MEQ/L (3.7-5.4); SAMPLE HEMOLYSIS CHECK 0; SAMPLE ICTERIC CHECK 0; SAMPLE LIPEMIA CHECK 0; SODIUM 139 MEQ/L (136-147); UREA NITROGEN (BUN) 24 mg/dL (9-23)
[2017-09-12 08:56] VITALS: BP 153/65
[2017-09-12 09:09] LABS: POINT-OF-CARE METER ID UU13113831
[2017-09-12 12:27] VITALS: BP 163/67
[2017-09-12 12:55] LABS: TROP-I INTERPRETATION NEGATIVE; TROPONIN-I 0.03 ng/mL (0.0-0.30)
[2017-09-12 12:57] LABS: POINT-OF-CARE METER ID UU13113700
== END 2017-09-12 16:47 ==
LOC: EME → EDBD 19:50 → EME 19:50 → EDOF 09-12 02:11 → ENRESERV 09-12 02:12 → 5WEST 09-12 03:38
PROVIDERS: Emergency Medicine; Hospitalist
DX: R07.9 Chest pain, unspecified (principal); I11.0 Hypertensive heart disease with heart failure; I50.22 Chronic systolic (congestive) heart failure; I25.5 Ischemic cardiomyopathy; E03.9 Hypothyroidism, unspecified; I48.0 Paroxysmal atrial fibrillation; D63.8 Anemia in other chronic diseases classified elsewhere; K21.9 Gastro-esophageal reflux disease without esophagitis; I25.10 Atherosclerotic heart disease of native coronary artery without angina pectoris; Z95.5 Presence of coronary angioplasty implant and graft; I25.2 Old myocardial infarction; E11.51 Type 2 diabetes mellitus with diabetic peripheral angiopathy without gangrene; R00.1 Bradycardia, unspecified; E78.5 Hyperlipidemia, unspecified; Z89.511 Acquired absence of right leg below knee; Z79.82 Long term (current) use of aspirin; Z79.84 Long term (current) use of oral hypoglycemic drugs; Z83.3 Family history of diabetes mellitus; Z82.49 Family history of ischemic heart disease and other diseases of the circulatory system; Z91.040 Latex allergy status; Z91.012 Allergy to eggs; Z88.0 Allergy status to penicillin
CPT/HCPCS: 71020; 80048; 80076; 82948; 83690; 84443; 84484; 85027; 85379; 93005; G0378; J1815; J2270; Q0169

== ENCOUNTER 2017-09-28 07:23 | Inpatient (IN) | payer OTHER ==
[~2017-09-28] VITALS: Ht 152.4 cm; Wt 46.5 kg
[2017-09-28] VITALS (8 sets, daily range): BP systolic 106–139; BP diastolic 40–52
[~2017-09-28 07:23] MED LIST changes: +COZAAR25 MG PO; +LACTINEX CHEWA1 EACH PO; +PLAVIX75 MG PO
[2017-09-28 08:13] LABS: HEMATOCRIT 32.4 % (36.0-46.0); HEMOGLOBIN 10.4 G/DL (11.9-15.5); MCH 31.5 PG (29.0-34.0); MCHC 32.1 G/DL (30.0-36.0); MCV 98.2 FL (83-99); PLATELET COUNT 216 K/uL (156-360); RBC DIS.WIDTH-CV 13.4 % (11.8-14.6); RBC DIS.WIDTH-SD 48.1 % (39-53); WHITE BLOOD COUNT 11.7 K/uL (4.1-10.2)
[2017-09-28 08:19] LABS: INTER. NORMALIZED RATIO 1.5
[2017-09-28 08:21] LABS: PTT 35.1 SEC (25-37)
[2017-09-28 08:24] LABS: ALBUMIN 3.4 g/dL (3.2-4.8); CHLORIDE 106 mEq/L (99-109); POTASSIUM 4.3 mEq/L (3.7-5.4); SODIUM 141 mEq/L (136-147)
[2017-09-28 08:26] LABS: GLUCOSE 264 mg/dL (70-99); TOTAL PROTEIN 7.2 g/dL (6.4-8.3)
[2017-09-28 08:28] LABS: TOTAL BILIRUBIN 0.4 mg/dL (0.0-1.0)
[2017-09-28 08:30] LABS: ALKALINE PHOSPHATASE 91 IU/L (3-129); GFR ESTIMATE (CALCULATED) 58 mL/min/
[2017-09-28 08:31] LABS: UREA NITROGEN (BUN) 19 mg/dL (9-23)
[2017-09-28 08:32] LABS: AST (GOT) 24 IU/L (2-34)
[2017-09-28 08:33] LABS: ALT (GPT) 9 IU/L (3-49)
[2017-09-28 08:34] LABS: TROP-I INTERPRETATION POSITIVE
[2017-09-28 08:35] LABS: TROPONIN-I 1.02 ng/mL (0.0-0.30)
[2017-09-28 09:43] LABS: LIPASE 10 U/L (1.0-51.0)
[2017-09-28 11:31] LABS: TROP-I INTERPRETATION POSITIVE; TROPONIN-I 3.41 ng/mL (0.0-0.30)
[2017-09-28 13:43] LABS: TROP-I INTERPRETATION POSITIVE
[2017-09-29] VITALS (15 sets, daily range): BP systolic 93–146; BP diastolic 37–56
[2017-09-29 07:02] LABS: BASOPHIL (%) 0.4 % (0-1); EOSINOPHIL (%) 0.1 % (0-5); HEMATOCRIT 23.9 % (36.0-46.0); IMMATURE GRANULOCYTE (%) 0.6 % (0.0-0.7); LYMPHOCYTE (%) 15.5 % (15-42); LYMPHOCYTE COUNT 1.4 K/uL (1.0-2.8); MCH 31.4 PG (29.0-34.0); MCHC 31.8 G/DL (30.0-36.0); MCV 98.8 FL (83-99); MONOCYTE COUNT 0.7 K/uL (0-0.8); NEUTROPHIL (%) 76.4 % (45-76); NEUTROPHIL COUNT 7.1 K/uL (1.8-6.4); PLATELET COUNT 152 K/uL (156-360); RBC DIS.WIDTH-SD 50.4 % (39-53); WHITE BLOOD COUNT 9.3 K/uL (4.1-10.2)
[2017-09-29 07:03] LABS: HEMOGLOBIN 7.6 G/DL (11.9-15.5); RED BLOOD COUNT 2.42 M/uL (3.80-5.20)
[2017-09-29 07:09] LABS: TROP-I INTERPRETATION POSITIVE; TROPONIN-I 28.54 ng/mL (0.0-0.30)
[2017-09-29 07:21] LABS: CHLORIDE 107 MEQ/L (99-109); CREATINE KINASE 249 IU/L (1-294); CREATININE 1.2 MG/DL (0.6-1.3); GFR ESTIMATE (CALCULATED) 47 mL/min/; GLUCOSE 323 mg/dL (70-99); HDL CHOLESTEROL 30 MG/DL (Desirable>=50); LDL CHOLESTEROL 50 mg/dL (Desirable<100); NON-HDL CHOLESTEROL 63 mg/dL (Desirable<160); POTASSIUM 4.6 MEQ/L (3.7-5.4); SODIUM 136 MEQ/L (136-147); TOTAL CHOLESTEROL 93 mg/dL (Desirable<200); TOTAL CK 249 IU/L (1-294); TRIGLYCERIDES 63 MG/DL (Normal: <150); UREA NITROGEN (BUN) 26 mg/dL (9-23)
[2017-09-29 07:37] LABS: Estimated Average Glucose 220 mg/dL (70-123); HEMOGLOBIN A1c (GLYCOHEMOGLOB) 9.3 % HGB (Below 5.7)
[2017-09-29 08:01] LABS: CK-MB 17.7 ng/mL (0.0-4.9); CKMB RELATIVE INDEX 7.1 (0.0-3.9)
[2017-09-29] MEDS ORDERED: NITROSTAT0.4 MG SL (08:31)
[2017-09-29] MEDS ORDERED: COZAAR25 MG PO (08:32)
[2017-09-29] MEDS ORDERED: DEXTROSE 50% IV (08:37)
[2017-09-29] MEDS ORDERED: GLUCAGON1 MG IM (08:37)
[2017-09-29] MEDS ORDERED: NOVOLOG 10100 UNITS/ SC (08:37)
[2017-09-29] MEDS ORDERED: GLUCOSE15 GM/59 M PO (08:38)
[2017-09-29 12:51] LABS: TROP-I INTERPRETATION POSITIVE; TROPONIN-I 24.62 ng/mL (0.0-0.30)
[2017-09-29 14:47] LABS: HEMATOCRIT 23.3 % (36.0-46.0); HEMOGLOBIN 7.4 G/DL (11.9-15.5); MCV 97.9 FL (83-99)
[2017-09-29 20:12] LABS: HEMATOCRIT 24.9 % (36.0-46.0); HEMOGLOBIN 7.9 G/DL (11.9-15.5); MCV 98.8 FL (83-99)
[2017-09-30] VITALS (16 sets, daily range): BP systolic 124–193; BP diastolic 50–115
[2017-09-30 09:53] LABS: CREATINE KINASE 144 IU/L (1-294); TOTAL CK 144 IU/L (1-294)
[2017-09-30 10:02] LABS: TROP-I INTERPRETATION POSITIVE; TROPONIN-I 18.25 ng/mL (0.0-0.30)
[2017-09-30 10:27] LABS: CK-MB 3.4 ng/mL (0.0-4.9); CKMB RELATIVE INDEX 2.4 (0.0-3.9)
[2017-10-01] VITALS (7 sets, daily range): BP systolic 167–189; BP diastolic 68–90
[2017-10-01 05:11] LABS: BASOPHIL (%) 0.5 % (0-1); BASOPHIL COUNT 0.1 K/uL (0-0.1); EOSINOPHIL (%) 1.3 % (0-5); EOSINOPHIL COUNT 0.2 K/uL (0-0.3); HEMOGLOBIN 11.4 G/DL (11.9-15.5); IMMATURE GRANULOCYTE (%) 0.6 % (0.0-0.7); LYMPHOCYTE (%) 13.7 % (15-42); LYMPHOCYTE COUNT 1.6 K/uL (1.0-2.8); MCH 30.3 PG (29.0-34.0); MCHC 33.5 G/DL (30.0-36.0); MCV 90.4 FL (83-99); MONOCYTE (%) 9.3 % (3-12); MONOCYTE COUNT 1.1 K/uL (0-0.8); NEUTROPHIL (%) 74.6 % (45-76); NEUTROPHIL COUNT 8.7 K/uL (1.8-6.4); PLATELET COUNT 126 K/uL (156-360); RBC DIS.WIDTH-CV 15.9 % (11.8-14.6); RBC DIS.WIDTH-SD 52.7 % (39-53); RED BLOOD COUNT 3.76 M/uL (3.80-5.20); WHITE BLOOD COUNT 11.7 K/uL (4.1-10.2)
[2017-10-01 05:19] LABS: ALBUMIN 2.8 g/dL (3.2-4.8); CHLORIDE 105 mEq/L (99-109); POTASSIUM 4.5 mEq/L (3.7-5.4); SODIUM 134 mEq/L (136-147)
[2017-10-01 05:22] LABS: GLUCOSE 238 mg/dL (70-99)
[2017-10-01 05:23] LABS: TOTAL PROTEIN 5.9 g/dL (6.4-8.3)
[2017-10-01 05:25] LABS: ALKALINE PHOSPHATASE 70 IU/L (3-129)
[2017-10-01 05:27] LABS: AST (GOT) 24 IU/L (2-34); CREATININE 2.9 mg/dL (0.6-1.3); GFR ESTIMATE (CALCULATED) 17 mL/min/; TOTAL BILIRUBIN 0.6 mg/dL (0.0-1.0); UREA NITROGEN (BUN) 53 mg/dL (9-23)
[2017-10-01 05:28] LABS: ALT (GPT) 11 IU/L (3-49)
[2017-10-02 03:00] VITALS: BP 141/91
[2017-10-02 06:02] LABS: ALBUMIN 2.7 G/DL (3.2-4.8); CHLORIDE 110 MEQ/L (99-109); CREATININE 2.5 MG/DL (0.6-1.3); GFR ESTIMATE (CALCULATED) 20 mL/min/; GLUCOSE 199 mg/dL (70-99); IRON 14 MCG/DL (35-150); PHOSPHORUS 4.5 mg/dL (2.5-4.9); POTASSIUM 4.2 MEQ/L (3.7-5.4); TRANSFERRIN (TIBC) 123.5 mg/dL (215-380); TRANSFERRIN SATUR. 11 % (20-55); UREA NITROGEN (BUN) 48 mg/dL (9-23)
[2017-10-02 06:03] LABS: SODIUM 141 MEQ/L (136-147)
[2017-10-02 06:16] LABS: URIC ACID 7.9 mg/dL (3.1-9.2)
[2017-10-02 07:21] LABS: APPEARANCE SL.HAZY ((CLEAR)); BILIRUBIN NEGATIVE; BLOOD SMALL; COLOR YELLOW ((YELLOW)); GLUCOSE (STRIP) NEGATIVE; KETONES NEGATIVE; LEUKOCYTES SMALL; NITRITE NEGATIVE; PROTEIN (STRIP) 30; SPECIFIC GRAVITY 1.012 (1.000-1.030); UROBILINOGEN 0.2 MG/DL (0.2-1.0)
[2017-10-02 07:31] LABS: BACTERIA RARE /HPF; EPITHELIAL CELLS RARE /HPF; MUCUS NONE SEEN /LPF; RED BLOOD CELLS 0-5 /HPF (0-5)
[2017-10-02 07:59] VITALS: BP 126/58
[2017-10-02 08:53] LABS: HEMATOCRIT 30.5 % (36.0-46.0); HEMOGLOBIN 10.3 G/DL (11.9-15.5); MCH 30.8 PG (29.0-34.0); MCHC 33.8 G/DL (30.0-36.0); MCV 91.3 FL (83-99); PLATELET COUNT 138 K/uL (156-360); RBC DIS.WIDTH-CV 15.7 % (11.8-14.6); RBC DIS.WIDTH-SD 52.5 % (39-53); RED BLOOD COUNT 3.34 M/uL (3.80-5.20)
[2017-10-02 09:13] LABS: TROP-I INTERPRETATION POSITIVE
[2017-10-02 09:21] LABS: TROPONIN-I 7.28 ng/mL (0.0-0.30)
[2017-10-02 12:00] VITALS: BP 157/95
[2017-10-02 15:35] LABS: TROP-I INTERPRETATION POSITIVE; TROPONIN-I 6.73 ng/mL (0.0-0.30)
[2017-10-02 16:00] VITALS: BP 155/79
[2017-10-02 19:52] VITALS: BP 159/71
[2017-10-03] VITALS (7 sets, daily range): BP systolic 119–153; BP diastolic 52–71
[2017-10-03 07:44] LABS: BASOPHIL (%) 0.6 % (0-1); BASOPHIL COUNT 0.1 K/uL (0-0.1); EOSINOPHIL (%) 2.9 % (0-5); EOSINOPHIL COUNT 0.3 K/uL (0-0.3); HEMOGLOBIN 9.4 G/DL (11.9-15.5); IMMATURE GRANULOCYTE (%) 0.4 % (0.0-0.7); LYMPHOCYTE (%) 14.3 % (15-42); LYMPHOCYTE COUNT 1.4 K/uL (1.0-2.8); MCH 30.2 PG (29.0-34.0); MCHC 32.4 G/DL (30.0-36.0); MCV 93.2 FL (83-99); MONOCYTE (%) 12.1 % (3-12); MONOCYTE COUNT 1.2 K/uL (0-0.8); NEUTROPHIL (%) 69.7 % (45-76); PLATELET COUNT 129 K/uL (156-360); RBC DIS.WIDTH-CV 15.7 % (11.8-14.6); RBC DIS.WIDTH-SD 53.9 % (39-53); RED BLOOD COUNT 3.11 M/uL (3.80-5.20)
[2017-10-03 08:32] LABS: ALBUMIN 2.5 G/DL (3.2-4.8); CHLORIDE 112 MEQ/L (99-109); GFR ESTIMATE (CALCULATED) 32 mL/min/; GLUCOSE 128 mg/dL (70-99); PHOSPHORUS 3.4 mg/dL (2.5-4.9); POTASSIUM 4.2 MEQ/L (3.7-5.4); SODIUM 139 MEQ/L (136-147); UREA NITROGEN (BUN) 37 mg/dL (9-23)
[2017-10-03 08:37] LABS: CREATININE 1.7 MG/DL (0.6-1.3)
[2017-10-04] VITALS (7 sets, daily range): BP systolic 122–172; BP diastolic 50–98
[2017-10-04 05:51] LABS: BASOPHIL (%) 0.5 % (0-1); BASOPHIL COUNT 0.1 K/uL (0-0.1); EOSINOPHIL (%) 3.6 % (0-5); EOSINOPHIL COUNT 0.4 K/uL (0-0.3); HEMATOCRIT 29.3 % (36.0-46.0); HEMOGLOBIN 9.3 G/DL (11.9-15.5); IMMATURE GRANULOCYTE (%) 0.5 % (0.0-0.7); LYMPHOCYTE (%) 16.9 % (15-42); LYMPHOCYTE COUNT 1.8 K/uL (1.0-2.8); MCH 30.2 PG (29.0-34.0); MCHC 31.7 G/DL (30.0-36.0); MCV 95.1 FL (83-99); MONOCYTE (%) 10.5 % (3-12); MONOCYTE COUNT 1.1 K/uL (0-0.8); NEUTROPHIL COUNT 7.1 K/uL (1.8-6.4); PLATELET COUNT 167 K/uL (156-360); RBC DIS.WIDTH-CV 15.4 % (11.8-14.6); RBC DIS.WIDTH-SD 53.9 % (39-53); RED BLOOD COUNT 3.08 M/uL (3.80-5.20); WHITE BLOOD COUNT 10.4 K/uL (4.1-10.2)
[2017-10-04 06:12] LABS: ALBUMIN 2.7 G/DL (3.2-4.8); CHLORIDE 114 MEQ/L (99-109); CREATININE 1.4 MG/DL (0.6-1.3); GFR ESTIMATE (CALCULATED) 40 mL/min/; GLUCOSE 174 mg/dL (70-99); POTASSIUM 4.1 MEQ/L (3.7-5.4); SODIUM 141 MEQ/L (136-147); UREA NITROGEN (BUN) 33 mg/dL (9-23)
[2017-10-04] MEDS ORDERED: AMLODIPINE BESY10 MG PO (13:41)
[2017-10-04] MEDS ORDERED: ASPIR-LOW81 MG PO (13:42)
[2017-10-04] MEDS ORDERED: METOPROLOL SUC100 MG PO (13:44)
[2017-10-04] MEDS ORDERED: IMDUR120 MG PO (13:45)
[2017-10-05 04:20] VITALS: BP 146/76
[2017-10-05 05:08] LABS: ALBUMIN 2.6 g/dL (3.2-4.8)
[2017-10-05 05:09] LABS: CHLORIDE 113 mEq/L (99-109); POTASSIUM 4.2 mEq/L (3.7-5.4); SODIUM 137 mEq/L (136-147)
[2017-10-05 05:11] LABS: GLUCOSE 244 mg/dL (70-99)
[2017-10-05 05:14] LABS: CREATININE 1.2 mg/dL (0.6-1.3); GFR ESTIMATE (CALCULATED) 47 mL/min/; PHOSPHORUS 3.5 mg/dL (2.5-4.9)
[2017-10-05 05:15] LABS: UREA NITROGEN (BUN) 27 mg/dL (9-23)
[2017-10-05 08:15] VITALS: BP 150/70
[2017-10-05 09:09] LABS: BASE EXCESS -6.4 mEq/L (-3 to +3); BICARBONATE 16.9 mEq/L (22-26); CARBOXY HGB 1.6 % (0-5); METHEMOGLOBIN 1.5 % (0-1.5); PO2 70 mm Hg (80-100); pH 7.42 (7.35-7.45)
[2017-10-05 09:10] LABS: COMMENTS - BLOOD GASES A+C+; PCO2 26 mm Hg (35-45); SITE RR
[2017-10-05 09:11] LABS: FI02 0.21 %
[2017-10-05 12:09] VITALS: BP 157/70
[2017-10-05 12:18] LABS: APPEARANCE SL.HAZY ((CLEAR)); BILIRUBIN NEGATIVE; BLOOD SMALL; COLOR YELLOW ((YELLOW)); GLUCOSE (STRIP) NEGATIVE; KETONES NEGATIVE; LEUKOCYTES SMALL; NITRITE NEGATIVE; PROTEIN (STRIP) 30; SPECIFIC GRAVITY 1.009 (1.000-1.030); UROBILINOGEN 0.2 MG/DL (0.2-1.0)
[2017-10-05 12:30] LABS: BACTERIA NONE SEEN /HPF; EPITHELIAL CELLS RARE /HPF; HYALINE CASTS 0-5 /LPF; MUCUS NONE SEEN /LPF; RED BLOOD CELLS 0-5 /HPF (0-5)
== END 2017-10-05 14:36 | DRG 249 ==
LOC: EME 07:23 → CATH 15:51 → 4EAST 17:05 → 2SOUTH 17:05 → ENRESERV 17:06 → 4WEST 17:10 → ENRESERV 09-30 03:46 → 4EAST 09-30 04:07 → ENPENDDIS 10-05 14:00 → 4EAST 10-05 14:36
PROVIDERS: Internal Medicine; Internal Medicine Critical Care Medicine; Internal Medicine Interventional Cardiology; Internal Medicine Nephrology; Nurse Practitioner Family; Student in an Organized Health Care Education/Training Program
DX: I21.19 ST elevation (STEMI) myocardial infarction involving other coronary artery of inferior wall (principal); I25.5 Ischemic cardiomyopathy; E11.51 Type 2 diabetes mellitus with diabetic peripheral angiopathy without gangrene; I25.119 Atherosclerotic heart disease of native coronary artery with unspecified angina pectoris; I48.0 Paroxysmal atrial fibrillation; D63.8 Anemia in other chronic diseases classified elsewhere; I48.2 Chronic atrial fibrillation; I50.22 Chronic systolic (congestive) heart failure; I11.0 Hypertensive heart disease with heart failure; I25.84 Coronary atherosclerosis due to calcified coronary lesion; I34.0 Nonrheumatic mitral (valve) insufficiency; E87.4 Mixed disorder of acid-base balance; I25.2 Old myocardial infarction; I42.9 Cardiomyopathy, unspecified; N17.9 Acute kidney failure, unspecified; N14.1 Nephropathy induced by other drugs, medicaments and biological substances; T50.8X5A Adverse effect of diagnostic agents, initial encounter; Z68.1 Body mass index [BMI] 19.9 or less, adult; Z89.511 Acquired absence of right leg below knee; Z79.02 Long term (current) use of antithrombotics/antiplatelets; Z82.49 Family history of ischemic heart disease and other diseases of the circulatory system; Z89.611 Acquired absence of right leg above knee
CPT/HCPCS: 36600; 71010; 76770; 80048; 80053; 80061; 80069; 81003; 82010; 82272; 82550; 82550 91; 82553; 82570; 82803; 82948; 83036; 83540; 83605; 83690; 84156; 84466; 84484; 84550; 85014; 85018; 85025; 85027; 85347; 85610; 85730; 86850; 86900; 86901; 86920; 87641; 93005; 94799; 99281; 99285; A6214; C1725; C1753; C1769; C1874; C1887; C1894; J0360; J1644; J1815; J1940; J2250; J2270; J2405; J2765; J3010; J7030; J7050; P9016

== ENCOUNTER 2017-10-09 05:54 | Inpatient (IN) | payer OTHER ==
[~2017-10-09] VITALS: Ht 152.4 cm; Wt 45.5 kg
[~2017-10-09 05:54] MED LIST changes: +ASPIR-LOW81 MG PO; +DEXTROSE 50% IV; +GLUCAGON1 MG IM; +GLUCOSE15 GM/59 M PO; +IMDUR120 MG PO; +NITROSTAT0.4 MG SL; +NOVOLOG 10100 UNITS/ SC
[2017-10-09 06:51] LABS: HEMATOCRIT 36.2 % (36.0-46.0); HEMOGLOBIN 11.5 G/DL (11.9-15.5); MCH 30.4 PG (29.0-34.0); MCHC 31.8 G/DL (30.0-36.0); MCV 95.8 FL (83-99); PLATELET COUNT 327 K/uL (156-360); RBC DIS.WIDTH-CV 15.4 % (11.8-14.6); RBC DIS.WIDTH-SD 54.7 % (39-53); RED BLOOD COUNT 3.78 M/uL (3.80-5.20); WHITE BLOOD COUNT 10.4 K/uL (4.1-10.2)
[2017-10-09 06:55] LABS: CHLORIDE 110 mEq/L (99-109); POTASSIUM 4.5 mEq/L (3.7-5.4); SODIUM 145 mEq/L (136-147)
[2017-10-09 06:55] LABS: INTER. NORMALIZED RATIO 1.6
[2017-10-09 06:56] LABS: GLUCOSE 264 mg/dL (70-99)
[2017-10-09 06:58] LABS: PTT 31.6 SEC (25-37)
[2017-10-09 07:00] LABS: CREATININE 1.4 mg/dL (0.6-1.3); GFR ESTIMATE (CALCULATED) 40 mL/min/
[2017-10-09 07:01] LABS: UREA NITROGEN (BUN) 24 mg/dL (9-23)
[2017-10-09 07:07] LABS: TROP-I INTERPRETATION NEGATIVE; TROPONIN-I 0.22 ng/mL (0.0-0.30)
[2017-10-09] MEDS ORDERED: TOPROL XL100 MG PO (08:54)
[2017-10-09] MEDS ORDERED: NORVASC10 MG PO (08:56)
[2017-10-09] MEDS ORDERED: ASPIR 8181 M1 PO (08:57)
[2017-10-09] MEDS ORDERED: OMEPRAZOLE40 M1 PO (09:01)
[2017-10-09 11:03] LABS: HEMATOCRIT 36.9 % (36.0-46.0); HEMOGLOBIN 11.8 G/DL (11.9-15.5); MCV 94.9 FL (83-99)
[2017-10-09 13:45] VITALS: BP 169/72
[2017-10-09 15:41] VITALS: BP 176/72
[2017-10-09 16:59] LABS: HEMATOCRIT 38.4 % (36.0-46.0); HEMOGLOBIN 12.3 G/DL (11.9-15.5); MCV 95.3 FL (83-99)
[2017-10-09 17:53] VITALS: BP 160/72
[2017-10-09 19:07] LABS: CARBOXY HGB 1.3 % (0-5); METHEMOGLOBIN 1.8 % (0-1.5); pH 7.37 (7.35-7.45)
[2017-10-09 19:08] LABS: COMMENTS - BLOOD GASES C+; DEVICE RA; MECHANICAL RATE 28 resp/min; PCO2 < 19 mm Hg (35-45); PO2 86 mm Hg (80-100); SITE RR
[2017-10-09 20:00] VITALS: BP 152/80
[2017-10-09 22:37] LABS: HEMATOCRIT 37.4 % (36.0-46.0); MCV 94.7 FL (83-99)
[2017-10-09 23:55] VITALS: BP 170/70
[2017-10-10 04:00] VITALS: BP 168/70
[2017-10-10 04:28] LABS: HEMOGLOBIN 10.6 G/DL (11.9-15.5)
[2017-10-10 04:39] LABS: CHLORIDE 114 mEq/L (99-109); POTASSIUM 3.6 mEq/L (3.7-5.4)
[2017-10-10 04:40] LABS: SODIUM 142 mEq/L (136-147)
[2017-10-10 04:41] LABS: GLUCOSE 315 mg/dL (70-99)
[2017-10-10 04:45] LABS: CREATININE 1.5 mg/dL (0.6-1.3); GFR ESTIMATE (CALCULATED) 37 mL/min/
[2017-10-10 04:46] LABS: UREA NITROGEN (BUN) 28 mg/dL (9-23)
[2017-10-10 09:31] VITALS: BP 194/95
[2017-10-10 10:14] LABS: HEMATOCRIT 34.9 % (36.0-46.0); HEMOGLOBIN 11.2 G/DL (11.9-15.5); MCV 94.6 FL (83-99)
[2017-10-10 11:12] VITALS: BP 174/75
[2017-10-10 14:55] VITALS: BP 117/58
[2017-10-10 16:48] LABS: HEMATOCRIT 31.8 % (36.0-46.0); HEMOGLOBIN 10.3 G/DL (11.9-15.5); MCV 93.3 FL (83-99)
[2017-10-10 20:00] VITALS: BP 132/68
[2017-10-10 22:38] LABS: HEMATOCRIT 30.9 % (36.0-46.0); MCV 93.1 FL (83-99)
[2017-10-10 23:00] VITALS: BP 146/74
[2017-10-11 03:50] VITALS: BP 164/56
[2017-10-11 07:04] LABS: HEMATOCRIT 32.6 % (36.0-46.0); HEMOGLOBIN 10.3 G/DL (11.9-15.5); MCH 29.4 PG (29.0-34.0); MCHC 31.6 G/DL (30.0-36.0); MCV 93.1 FL (83-99); PLATELET COUNT 338 K/uL (156-360); RBC DIS.WIDTH-CV 15.7 % (11.8-14.6); RBC DIS.WIDTH-SD 53.6 % (39-53); WHITE BLOOD COUNT 9.3 K/uL (4.1-10.2)
[2017-10-11 08:32] VITALS: BP 161/71
[2017-10-11 10:43] LABS: HEMATOCRIT 32.9 % (36.0-46.0); HEMOGLOBIN 10.9 G/DL (11.9-15.5); MCV 92.2 FL (83-99)
[2017-10-11 12:10] VITALS: BP 126/59
[2017-10-11 16:36] LABS: HEMATOCRIT 35.8 % (36.0-46.0); HEMOGLOBIN 11.4 G/DL (11.9-15.5)
[2017-10-11 16:45] VITALS: BP 177/72
[2017-10-11 22:16] LABS: HEMATOCRIT 34.8 % (36.0-46.0); HEMOGLOBIN 11.1 G/DL (11.9-15.5); MCV 93.5 FL (83-99)
[2017-10-11 22:20] VITALS: BP 124/76
[2017-10-12] VITALS: BP 148/75
[2017-10-12 04:00] VITALS: BP 146/72
[2017-10-12 06:50] LABS: HEMATOCRIT 36.3 % (36.0-46.0); HEMOGLOBIN 11.8 G/DL (11.9-15.5); MCV 94.3 FL (83-99)
[2017-10-12 08:07] VITALS: BP 136/64
[2017-10-12 09:05] LABS: CHLORIDE 112 MEQ/L (99-109); POTASSIUM 3.6 MEQ/L (3.7-5.4); SODIUM 138 MEQ/L (136-147)
[2017-10-12 09:11] LABS: GLUCOSE 189 mg/dL (70-99); UREA NITROGEN (BUN) 15 mg/dL (9-23)
[2017-10-12 09:22] LABS: CREATININE 0.9 MG/DL (0.6-1.3); GFR ESTIMATE (CALCULATED) > 59 mL/min/
[2017-10-12] MEDS ORDERED: APRESOLINE25 MG PO (09:45)
[2017-10-12 10:08] LABS: HEMATOCRIT 36.5 % (36.0-46.0); HEMOGLOBIN 11.7 G/DL (11.9-15.5); MCV 93.4 FL (83-99)
[2017-10-12 14:04] VITALS: BP 129/59
== END 2017-10-12 16:12 | DRG 378 ==
LOC: EME 05:54 → EDOF 09:37 → 4EAST 09:37 → ENRESERV 09:52 → EDOF 09:56 → ENRESERV 12:28 → 4EAST 13:43 → ENPENDDIS 10-12 → 4EAST 10-12 16:12
PROVIDERS: Emergency Medicine; Internal Medicine
DX: K92.0 Hematemesis (principal); K92.1 Melena; D63.8 Anemia in other chronic diseases classified elsewhere; E11.51 Type 2 diabetes mellitus with diabetic peripheral angiopathy without gangrene; I11.0 Hypertensive heart disease with heart failure; I50.22 Chronic systolic (congestive) heart failure; I25.5 Ischemic cardiomyopathy; I25.10 Atherosclerotic heart disease of native coronary artery without angina pectoris; I42.0 Dilated cardiomyopathy; I48.0 Paroxysmal atrial fibrillation; I48.2 Chronic atrial fibrillation; R00.0 Tachycardia, unspecified; I25.2 Old myocardial infarction; E78.5 Hyperlipidemia, unspecified; E03.8 Other specified hypothyroidism; K21.9 Gastro-esophageal reflux disease without esophagitis; Z68.1 Body mass index [BMI] 19.9 or less, adult; Z79.01 Long term (current) use of anticoagulants; Z79.02 Long term (current) use of antithrombotics/antiplatelets; Z82.49 Family history of ischemic heart disease and other diseases of the circulatory system; Z83.3 Family history of diabetes mellitus; Z89.611 Acquired absence of right leg above knee; Z95.5 Presence of coronary angioplasty implant and graft
CPT/HCPCS: 36600; 80048; 82803; 82948; 84484; 85014; 85018; 85027; 85610; 85730; 86850; 86900; 86901; 87641; 93005; 99281; 99284; C9113; J1815; J2405; J7042; J7050